=== PATIENT | male | born 1985 | race African-American/Black ===

== ENCOUNTER 2018-01-14 15:13 | Emergency (ER) | payer OTHER ==
[~2018-01-14] VITALS: Ht 185.4 cm; Wt 81.6 kg
[2018-01-14] MEDS: IV NORMAL SALINE 1,000ML 1,000 ML IV ONE (15:45)
[2018-01-14] MEDS: ONDANSETRON PF 4 MG/2 ML VIAL. IV ONE (16:04)
--- NOTE | 2018-01-14 16:07 | PHYS DOC ---
Adult General Chief Complaint Chief Complaint: NAUSEA/VOMITING/DIARRHEA HPI HPI 32-year-old male accompanied by jail guards presents with nausea, dehydration , and heat injury. The patient was outside playing basketball. The temperature with the heat index is 98. The patient became overheated and was unable to get inside to cool down quickly. He drank a small amount of water but vomited it back up. The jail guards were concerned and took him to the clinic. In the clinic they were concerned for more serious heat exhaustion so they advised transport to the ER. At this time, the patient is feeling well. States that once he got cool down he started to feel a lot better. He has had 500 mL of LR transport. Denies shortness of breath, chest pain, dizziness, nausea, vomiting. Review of Systems Review of Systems Constitutional: Denies fever or chills [] Eyes: Denies change in visual acuity, redness, or eye pain [] HENT: Denies nasal congestion or sore throat [] Respiratory: Denies cough or shortness of breath [] Cardiovascular: No additional information not addressed in HPI [] GI: nausea, vomiting. Denies bloody stools or diarrhea [] : Denies dysuria or hematuria [] Musculoskeletal: Denies back pain or joint pain [] Integument: Denies rash or skin lesions [] Neurologic: Denies headache, focal weakness or sensory changes [] Endocrine: Denies polyuria or polydipsia [] All other systems were reviewed and found to be within normal limits, except as documented in this note. Current Medications Current Medications Current Medications Medications (Trade) Dose Ordered Sig/[facility] Start Time Stop Time Status Last Admin Dose Admin Ondansetron HCl (Zofran) 4 mg 1X ONCE 01/14/18 15:45 01/14/18 15:46 UNV Sodium Chloride 1,000 ml @ 1,000 mls/hr 1X ONCE 01/14/18 15:45 01/14/18 16:44 UNV Physical Exam Physical Exam Constitutional: Well developed, well nourished, no acute distress, non-toxic appearance. [] HENT: Normocephalic, atraumatic, bilateral external ears normal, oropharynx dry , no oral exudates, nose normal. [] Eyes: PERRLA, EOMI, conjunctiva normal, no discharge. [] Neck: Normal range of motion, no tenderness, supple, no stridor. [] Cardiovascular:Heart rate regular rhythm, no murmur [] Lungs & Thorax: Bilateral breath sounds clear to auscultation [] Abdomen: Bowel sounds normal, soft, no tenderness, no masses, no pulsatile masses. [] Skin: Warm, dry, no erythema, no rash. [] Back: No tenderness, no CVA tenderness. [] Extremities: No tenderness, no cyanosis, no clubbing, ROM intact, no edema. [] Neurologic: Alert and oriented X 3, normal motor function, normal sensory function, no focal deficits noted. [] Psychologic: Affect normal, judgement normal, mood normal. [] EKG EKG [] Radiology/Procedures Radiology/Procedures [] Course & Med Decision Making Course & Med Decision Making Pertinent Labs and Imaging studies reviewed. (See chart for details) I will give the patient Zofran, 1 L normal saline, and do basic labs. His labs are unremarkable. He is feeling better after IV rehydration. He is stable for discharge at this time. [] Dragon Disclaimer Dragon Disclaimer This electronic medical record was generated, in whole or in part, using a voice recognition dictation system. TUAN SHANNON DO Jan 14, 2018 16:07
[2018-01-14 16:48] LABS: BASO # 0.1 x10^3/uL (0.0-0.2); BASO % 1 % (0-3); EOS % 1 % (0-3); HEMOGLOBIN 13.6 g/dL (13.0-17.5); LYMPH # 1.4 x10^3/uL (1.0-4.8); LYMPH % 20 % (24-48); MEAN CORPUSCULAR HEMOGLOBIN 29 pg (25-35); MEAN CORPUSCULAR HGB CONC 33 g/dL (31-37); MEAN CORPUSCULAR VOLUME 86 fL (79-100); MONO # 0.3 x10^3/uL (0.0-1.1); MONO % 5 % (0-9); NEUT % 74 % (31-73); PLATELET COUNT 238 x10^3/uL (140-400); RED BLOOD COUNT 4.74 x10^6/uL (4.30-5.70); RED CELL DISTRIBUTION WIDTH 13.7 % (11.5-14.5); WHITE BLOOD COUNT 6.8 x10^3/uL (4.0-11.0)
[2018-01-14 16:56] LABS: CALCIUM 9.4 mg/dL (8.5-10.1); CREATININE 0.9 mg/dL (0.7-1.3); GFR 97.8; POTASSIUM 4.2 mmol/L (3.5-5.1)
[2018-01-14 17:12] VITALS: BP 130/78
== END 2018-01-14 17:25 | disposition home or self-care (01) ==
LOC: ER 15:13
DX: E86.0 Dehydration (principal)
CPT/HCPCS: 36415; 80048; 85025; 96361; 96374; J2405; 99284-25; J7030